=== PATIENT | male | born 1965 | race Caucasian/White ===

== ENCOUNTER 2018-01-31 01:55 | Day surgery (SDC) | payer BC ==
[~2018-01-31] VITALS: Ht 172.7 cm; Wt 80.7 kg
[~2018-01-31 01:55] MED LIST: ATOR40TA24 PO; CITA-145 PO; EZET10TA41 PO; LOSA-54 PO; PANT40TA65 PO
[2018-01-31] MEDS ORDERED: PROPOFOL EMUL(*) 10MG/ML 20 ML 20 ML ONE ×2 (10:22→13:32)
[2018-01-31 12:24] VITALS: BP 148/100
[2018-01-31] MEDS ORDERED: LIDOCAINE/SOD BICARB 8.4% SYR ID ONE (12:35)
[2018-01-31] MEDS ORDERED: NORMOSOL R SOLN(*) 1000 ML BAG 1,000 ML IV PRN (12:35)
[2018-01-31 13:49] VITALS: BP 115/88
[2018-01-31 14:16] VITALS: BP 138/93
[2018-01-31 14:17] VITALS: BP 133/96
== END 2018-01-31 14:24 | disposition home or self-care (01) ==
LOC: OR 01:55
PROVIDERS: ATTEND Family Medicine
DX: Z12.11 Encounter for screening for malignant neoplasm of colon (principal); K63.5 Polyp of colon
CPT/HCPCS: 00811; 45385; 88305; J2704